=== PATIENT | female | born 1960 | race Caucasian/White ===

== ENCOUNTER → 2017-01-09 | Outpatient (CLI) | payer OTHER ==
[2017-01-09 13:11] LABS: BASO # 0.1 x10^3/uL (0.0-0.2); BASO % 1 % (0-3); EOS % 3 % (0-3); HEMATOCRIT 45.1 % (36.0-47.0); HEMOGLOBIN 15.5 g/dL (12.0-15.5); LYMPH # 2.7 x10^3/uL (1.0-4.8); LYMPH % 33 % (24-48); MEAN CORPUSCULAR HEMOGLOBIN 30 pg (25-35); MEAN CORPUSCULAR HGB CONC 34 g/dL (31-37); MEAN CORPUSCULAR VOLUME 88 fL (79-100); MONO % 8 % (0-9); NEUT % 55 % (31-73); PLATELET COUNT 259 x10^3/uL (140-400); RED BLOOD COUNT 5.12 x10^6/uL (3.50-5.40); RED CELL DISTRIBUTION WIDTH 13.8 % (11.5-14.5); WHITE BLOOD COUNT 8.1 x10^3/uL (4.0-11.0)
[2017-01-09 13:37] LABS: CREATININE 0.9 mg/dL (0.6-1.0); GFR 64.5
--- NOTE | 2017-01-09 14:41 | EKG ---
[facility] [address] [place] [address] Test Date: 2017-01-09 Test Time: 13:22:53 Pat Name: JOSE HERRERA Department: Room: Gender: F Government Relations Director: GERHARD : 1960 Requested By: PORTER REN Order Number: [id number] Reading MD: Measurements Intervals [place] Rate: 128 P: 0 MD: 112 QRS: 59 QRSD: 104 T: 62 QT: 346 QTc: 509 Interpretive Statements SINUS TACHYCARDIA VENTRICULAR PREMATURE COMPLEX(ES) INTERPOLATED VENTRICULAR PREMATURE COMPLEX(ES) QRS(T) CONTOUR ABNORMALITY CONSIDER INFERIOR MYOCARDIAL DAMAGE ABNORMAL ECG RI6.01 No previous ECG available for comparison
[2017-01-10 00:11] LABS: VITAMIN D25(OH)TOTAL 45.5 ng/mL (30.0-100.0)
== END | disposition home or self-care (01) ==
LOC: LAB 12:48
PROVIDERS: ATTEND Psychiatry & Neurology Neurology
DX: G43.101 Migraine with aura, not intractable, with status migrainosus (principal); I49.3 Ventricular premature depolarization; Q89.9 Congenital malformation, unspecified; R00.0 Tachycardia, unspecified
CPT/HCPCS: 36415; 82306; 82565; 82607; 84450; 84460; 84520; 85027; 85651; 93005

== ENCOUNTER → 2019-01-23 | Outpatient (CLI) | payer OTHER ==
--- NOTE | 2019-01-23 12:50 | RAD ---
EXAM: Lumbar spine, 3 views. HISTORY: Pain. COMPARISON: None. FINDINGS: 3 views of the lumbar spine are obtained. There is mild lumbar levoscoliosis. There is minimal grade 1 anterolisthesis of L4 on L5, measuring 2 mm. There is degenerative endplate remodeling with anterior spurring primarily the lower thoracic levels. There is facet arthropathy predominantly at the lower lumbar levels. There is no fracture. IMPRESSION: 1. Multilevel degenerative change involving the lower lumbar and lower thoracic spine, described above. 2. Mild lumbar scoliosis. 3. Minimal grade 1 anterolisthesis of L4 and L5. Electronically signed by: Lauren Lentz MD (01/23/2019 12:47 PM) [id number]
== END | disposition home or self-care (01) ==
LOC: RAD 11:15
PROVIDERS: ATTEND Internal Medicine
DX: M47.816 Spondylosis without myelopathy or radiculopathy, lumbar region (principal); M47.814 Spondylosis without myelopathy or radiculopathy, thoracic region; M41.86 Other forms of scoliosis, lumbar region; M43.16 Spondylolisthesis, lumbar region; M12.88 Other specific arthropathies, not elsewhere classified, other specified site
CPT/HCPCS: 72100